=== PATIENT | female | born 1950 | race Caucasian/White ===

== ENCOUNTER 2025-02-04 07:22 | Day surgery (SDC) | payer MEDICARE ==
[~2025-02-04] VITALS: Ht 172.7 cm; Wt 92.5 kg
[~2025-02-04 07:22] MED LIST: FLON1SPR; LISI10TA22 PO; MIDAZOLAM INJ 2 MG/2 ML VIAL As Ordered ONE; MULTTAB61 PO; PHENYLEPHRINE 10% OPHTH SOL 5ML OS PRN; VITA100093 PO
[2025-02-04] MEDS: PHENYLEPHRINE 2.5% OPHTH SOL 2ML OS SCH (08:40)
[2025-02-04] MEDS: LIDOCAINE 3.5% 1 ML OPHTH TOPICAL GEL OU ONE (08:40)
[2025-02-04] MEDS: TROPICAMIDE 1% OPHTH SOLN 15ML OS SCH (08:40)
[2025-02-04] MEDS: OFLOXACIN 0.3 % (OCUFLOX) OPTH SOL 5ML OS ONE (08:40)
[2025-02-04] MEDS: CYCLOPENTOLATE 1% OPHTH SOLN 2 ML BTL OS SCH (08:41)
[2025-02-04] MEDS: BSS IRRIG/VANCO(10MG)/TOBRA(5MG)/EPINEPH(1:1000-0.5CC)500ML BAG-ORONLY As Ordered ONE (09:46)
[2025-02-04] MEDS: LIDOCAINE 1% SDV 5 ML VIAL As Ordered ONE (09:46)
[2025-02-04] MEDS: CEFUROXIME 1 MG/0.1 ML INTRACAMERAL INJ As Ordered ONE (09:46)
[2025-02-04 10:01] VITALS: BP 112/66; TEMP 97.8; O2SAT 97
== END 2025-02-04 10:18 | disposition home or self-care (01) ==
LOC: M SDC 07:22
PROVIDERS: ATTEND Ophthalmology
DX: H25.12 Age-related nuclear cataract, left eye (principal); I10 Essential (primary) hypertension; Z79.899 Other long term (current) drug therapy; Z88.2 Allergy status to sulfonamides; Z88.8 Allergy status to other drugs, medicaments and biological substances
CPT/HCPCS: 66984; 92015; J0697; J2250; J3010; V2788

== ENCOUNTER 2025-03-04 07:14 | Day surgery (SDC) | payer MEDICARE ==
[~2025-03-04] VITALS: Ht 167.6 cm; Wt 94.8 kg
[~2025-03-04 07:14] MED LIST changes: +PHENYLEPHRINE 10% OPHTH SOL 5ML OD PRN; -PHENYLEPHRINE 10% OPHTH SOL 5ML OS PRN
[2025-03-04] MEDS: PHENYLEPHRINE 2.5% OPHTH SOL 2ML OD SCH (07:47)
[2025-03-04] MEDS: CYCLOPENTOLATE 1% OPHTH SOLN 2 ML BTL OD SCH (07:47)
[2025-03-04] MEDS: OFLOXACIN 0.3 % (OCUFLOX) OPTH SOL 5ML OD ONE (07:47)
[2025-03-04] MEDS: TROPICAMIDE 1% OPHTH SOLN 15ML OD SCH (07:47)
[2025-03-04] MEDS: LIDOCAINE 3.5% 1 ML OPHTH TOPICAL GEL OU ONE (07:47)
[2025-03-04] MEDS: LIDOCAINE 1% SDV 5 ML VIAL As Ordered ONE (08:35)
[2025-03-04] MEDS: CEFUROXIME 1 MG/0.1 ML INTRACAMERAL INJ As Ordered ONE (08:38)
[2025-03-04] MEDS: BSS IRRIG/VANCO(10MG)/TOBRA(5MG)/EPINEPH(1:1000-0.5CC)500ML BAG-ORONLY As Ordered ONE (08:38)
[2025-03-04 08:51] VITALS: BP 151/76; TEMP 97.5; O2SAT 97
== END 2025-03-04 09:03 | disposition home or self-care (01) ==
LOC: M SDC 07:14
PROVIDERS: ATTEND Ophthalmology
DX: H25.11 Age-related nuclear cataract, right eye (principal); I10 Essential (primary) hypertension; Z88.2 Allergy status to sulfonamides; Z79.899 Other long term (current) drug therapy; Z98.42 Cataract extraction status, left eye
CPT/HCPCS: 66984; 92015; J0697; J2250; J3010; V2788